=== PATIENT | female | born 1955 | race Caucasian/White ===

== ENCOUNTER → 2019-12-17 | Outpatient (CLI) | payer BC ==
[~2019-12-17] MED LIST: CALAN80 MG PO; DYRENIUM 50MG C50 MG PO; FIORINAL 325 MG1 CAP; HCTZ 25MG TAB25 MG PO; K-DUR 2020 MEQ PO; PHENTERMINE15 MG PO; TOPAMAX 25MG25 M1
== END ==
LOC: MC.RAD 11:18
DX: Z12.31 Encounter for screening mammogram for malignant neoplasm of breast (principal)

== ENCOUNTER 2020-11-01 11:52 | Observation (INO) | payer MEDICARE, BC ==
[~2020-11-01] VITALS: Ht 160.1 cm; Wt 74.7 kg
[~2020-11-01 11:52] MED LIST changes: -TOPAMAX 25MG25 M1; +TOPAMAX 25MG25 M1 PO
[2020-11-01 12:25] LABS: BASO # 0.1 (0.0-0.2); BASO % 0.6 % (0.0-2.0); EOS # 0.2 (0.0-0.7); EOS % 1.6 % (0-4.0); GRAN # 7.6 (1.4-6.5); GRAN % 70.2 % (42.2-75.2); HEMATOCRIT 43.1 % (37.0-47.0); LYMPH # 2.4 (1.2-3.4); LYMPH % 22.5 % (20.0-51.0); MEAN CELL VOLUME 88 fl (80.0-100.0); MEAN CORPUSCULAR HEMOGLOBIN 29 pg (27.0-31.0); MEAN CORPUSCULAR HGB CONC 33 g/dl (33.0-37.0); MEAN PLATELET VOLUME 10.2 fl (7.4-10.4); MONO # 0.5 (0.1-0.6); MONO % 4.6 % (1.7-9.3); PLATELET COUNT 286 K/mm3 (130-400); RED BLOOD COUNT 4.89 M/mm3 (4.10-5.30); REDCELL DISTRIBUTION WIDTH-CV 14.5 % (11.5-14.5)
[2020-11-01 12:34] LABS: ALANINE AMINOTRANSFERASE 18 U/L (4-34); ALBUMIN 4.2 gm/dL (3.5-5.0); ALKALINE PHOSPHATASE 135 U/L (50-136); ANION GAP 8 mmol/L (7-16); AST,SGOT 28 U/L (15-37); BILIRUBIN,TOTAL 0.3 mg/dL (0.0-1.0); BLOOD UREA NITROGEN 17 mg/dL (7-17); CALCIUM 9.8 mg/dL (8.4-10.2); CARBON DIOXIDE 27 mmol/L (22-30); CHLORIDE 103 mmol/L (98-107); CREATININE, serum 0.88 (0.52-1.25); GLUCOSE 95 mg/dL (74-106); POTASSIUM 3.8 mmol/L (3.4-5.0); SODIUM 138 mmol/L (137-145); TOTAL PROTEIN 7.5 gm/dL (6.4-8.2)
[2020-11-01 12:52] LABS: TROPONIN-I < 0.012 ng/mL (0.000-0.035)
[2020-11-01 20:00] VITALS: BP 145/67; PULSE 73; TEMP 98.4
[2020-11-01] MEDS ORDERED: KLOR-CON 88 ME1 PO (20:57)
[2020-11-01] MEDS ORDERED: ONE-A-DAY ESSE1 EACH PO (20:59)
[2020-11-02] VITALS: BP 115/49; PULSE 72; TEMP 97.9
--- NOTE | 2020-11-02 01:57 | NUR ---
PT REQUESTING TO SPEAK WITH DOCTOR ABOUT PRESCRIBED EVENING MEDICATIONS. AVA MALDONADO NOTIFIED AND SAID SHE WOULD STOP BY LATER THIS EVENING TO SPEAK WITH HER. PT DOING WELL AT THIS TIME. ADMISSION INTAKE COMPLETED. CALL LIGHT WITHIN REACH. WILL CONTINUE TO MONITOR.
[2020-11-02 04:00] VITALS: BP 99/45; PULSE 65; TEMP 97.5
[2020-11-02 07:00] LABS: BASO # 0.1 (0.0-0.2); BASO % 0.7 % (0.0-2.0); EOS # 0.2 (0.0-0.7); EOS % 2.1 % (0-4.0); GRAN # 6.3 (1.4-6.5); GRAN % 68.5 % (42.2-75.2); HEMATOCRIT 41.9 % (37.0-47.0); HEMOGLOBIN 13.7 g/dl (12.5-16.0); LYMPH % 22.2 % (20.0-51.0); MEAN CELL VOLUME 88 fl (80.0-100.0); MEAN CORPUSCULAR HEMOGLOBIN 29 pg (27.0-31.0); MEAN CORPUSCULAR HGB CONC 33 g/dl (33.0-37.0); MEAN PLATELET VOLUME 10.5 fl (7.4-10.4); MONO # 0.6 (0.1-0.6); MONO % 6.2 % (1.7-9.3); PLATELET COUNT 288 K/mm3 (130-400); RED BLOOD COUNT 4.76 M/mm3 (4.10-5.30); REDCELL DISTRIBUTION WIDTH-CV 14.3 % (11.5-14.5)
[2020-11-02 07:08] LABS: ANION GAP 9 mmol/L (7-16); BLOOD UREA NITROGEN 22 mg/dL (7-17); CALCIUM 9.1 mg/dL (8.4-10.2); CARBON DIOXIDE 27 mmol/L (22-30); CHLORIDE 102 mmol/L (98-107); CREATININE, serum 0.79 (0.52-1.25); GLUCOSE 104 mg/dL (74-106); POTASSIUM 3.1 mmol/L (3.4-5.0); SODIUM 138 mmol/L (137-145)
[2020-11-02 07:27] LABS: TROPONIN-I < 0.012 ng/mL (0.000-0.035)
[2020-11-02 07:33] VITALS: BP 99/45; PULSE 65; TEMP 97.5
[2020-11-02 07:36] LABS: CHOLESTEROL 157 mg/dL (120-200); CHOLESTEROL RISK RATIO 3.5; HDL CHOLESTEROL 44 mg/dL; LDL CHOLESTEROL 73 mg/dL; TRIGLYCERIDE 198 mg/dL
[2020-11-02 08:14] VITALS: BP 121/69; PULSE 64; TEMP 97.5
--- NOTE | 2020-11-02 08:19 | NUR ---
Assessment completed, alert/oriented, vital signs stable, denies chest pain or discomfort throught he night or this morning, she is scheduled for NM stress test this morning and has been NPO, K+ low at 3.1 and replacmeent ordered per protocol/ patient is unable to tolerate potassium IV even at a reduced rate due to "extreme pain and burning", I will notify the hospitalist and adjust treatment, she denies other needs at this time, I will continue to monitor
--- NOTE | 2020-11-02 10:59 | NUR ---
SW met with patient for intake assessment. Patient reports that she is and lives alone at home in [place]. Patient has two daughters, Shaniqua (P#[phone]) and Martin.Both daughters live in [place]. Patient reports that she does not use any DME at home and is independent on all ADL's. Patient's PCP is Dr. Hernandez and uses [email or web address] for perscriptions. Patient doesn't have problems affording medications. Patient does not have a DPOA-HC established, but wishes to receive form to complete at a later time. SW provided form and educated patient on what a DPOA-HC means. Patient plans to discharge to home when ready. Patient has no other needs at this time. * Discharge plan: Home*
[2020-11-02 12:30] VITALS: BP 133/62; PULSE 73; TEMP 98.3
[2020-11-02] MEDS ORDERED: ASPIRIN E.C. 8181 MG PO (12:45)
[2020-11-02] MEDS ORDERED: PROTONIX 40MG T40 MG PO (12:49)
--- NOTE | 2020-11-02 13:08 | NUR ---
Discussed discharge orders and instructions with the patient, instructed to follow up with PCP and Cardiology as scheduled, instructed to take meds as prescribed, IV and tele removed, neftali will be leaving with her sister, she is ambulatory and i will escort her out the door
== END 2020-11-02 14:58 | disposition home or self-care (01) ==
LOC: COL.ER 11:52 → MEDICAL 13:34
PROVIDERS: Emergency Medicine; Physician Assistant; ADMIT Internal Medicine
DX: R07.9 Chest pain, unspecified (principal); I10 Essential (primary) hypertension; Z79.82 Long term (current) use of aspirin; Z79.899 Other long term (current) drug therapy; Z20.822 Contact with and (suspected) exposure to COVID-19; Z98.51 Tubal ligation status; Z90.89 Acquired absence of other organs
CPT/HCPCS: A9500; G0378; J1650; J3480

== ENCOUNTER → 2021-06-06 | Outpatient (CLI) | payer MEDICARE, BC ==
[~2021-06-06] MED LIST changes: +ASPIRIN E.C. 8181 MG PO; +KLOR-CON 88 ME1 PO; +ONE-A-DAY ESSE1 EACH PO; +PROTONIX 40MG T40 MG PO
== END ==
LOC: MC.RAD 13:55
DX: Z12.31 Encounter for screening mammogram for malignant neoplasm of breast (principal)

== ENCOUNTER → 2022-01-30 | Outpatient (CLI) | payer MEDICARE, BC | LOC: COL.RAD 08:41 | DX: N28.1 Cyst of kidney, acquired (principal); R10.2 Pelvic and perineal pain ==

== ENCOUNTER → 2023-11-11 | Outpatient (CLI) | payer MEDICARE, BC | LOC: MC.RAD 10:27 | DX: Z12.31 Encounter for screening mammogram for malignant neoplasm of breast (principal) ==